=== PATIENT | female | born 1980 | race Two or more races ===

== ENCOUNTER 2022-05-21 08:49 | Emergency (ER) | payer MEDICAID ==
[~2022-05-21] VITALS: Ht 157.5 cm; Wt 77.1 kg
--- NOTE | 2022-05-21 09:00 | NUR ---
Recived pt 41yrs femal came from home twecesed here lt ankle c/o pain on LT ANKLE SWALLEN ON Lt ANKLE NO Deformity
--- NOTE | 2022-05-21 09:15 | NUR ---
SEEN BY DR. LEIGH
[2022-05-21] MEDS ORDERED: KETOROLAC TROMETHAMINE INJ 30 MG/ML VIAL ONE (09:25)
[2022-05-21] MEDS ORDERED: KETOROLAC TROMETHAMINE INJ 60 MG/2 ML VIAL IM ONE (09:30)
--- NOTE | 2022-05-21 09:45 | NUR ---
x-ray done at bed side
--- NOTE | 2022-05-21 10:45 | NUR ---
Marilee pop in [facility] - 05/21/22 at 1139 by JAZMINE X-RAY DONE at bed side
[2022-05-21] MEDS ORDERED: IBUP-1953 PO (11:18)
[2022-05-21 11:35] VITALS: BP 109/73
[2022-05-21] MEDS ORDERED: HYDR-3976 GT (12:11)
[2022-05-21] MEDS ORDERED: HYDR-3976 PO (12:13)
--- NOTE | 2022-05-21 12:38 | NUR ---
Patient discharged to home in stable condition. Written and verbal after care instructions given. Patient verbalizes understanding of instruction.
== END 2022-05-21 12:40 | disposition home or self-care (01) ==
LOC: ER 08:56
DX: S92.902A Unspecified fracture of left foot, initial encounter for closed fracture (principal); S93.492A Sprain of other ligament of left ankle, initial encounter; S93.491A Sprain of other ligament of right ankle, initial encounter; S90.32XA Contusion of left foot, initial encounter; S90.31XA Contusion of right foot, initial encounter; Z88.2 Allergy status to sulfonamides; Z79.899 Other long term (current) drug therapy; X50.1XXA Overexertion from prolonged static or awkward postures, initial encounter; Y93.89 Activity, other specified; Y92.89 Other specified places as the place of occurrence of the external cause; Y99.8 Other external cause status
CPT/HCPCS: 99285; 29515; 96372; 73610 ×2; 73630 ×2; J1885